=== PATIENT | female | born 1945 | race Caucasian/White ===

== ENCOUNTER → 2016-06-19 | Outpatient (CLI) | payer OTHER | LOC: RAD 10:16 | DX: Z12.31 Encounter for screening mammogram for malignant neoplasm of breast (principal) ==

== ENCOUNTER → 2017-09-04 | Outpatient (CLI) | payer OTHER | LOC: RAD 01:15 | DX: Z12.31 Encounter for screening mammogram for malignant neoplasm of breast (principal) ==

== ENCOUNTER → 2018-11-04 | Outpatient (CLI) | payer OTHER | LOC: RAD 04:05 | DX: Z12.31 Encounter for screening mammogram for malignant neoplasm of breast (principal) ==

== ENCOUNTER → 2018-11-26 | Outpatient (CLI) | payer OTHER ==
--- NOTE | 2018-11-26 10:31 | 2DMMODE ---
[facility] [place] [address] 2 D/M-MODE ECHOCARDIOGRAM Name: MERRICK DORAN Room #: REG [facility]#: [id number] ������������� Admission: 11/26/18 ������������� Attend Phys: Eber Lawrence, Discharge: ��� ������������� ��� Date of : 47 Date of Service: 11/26/18 1031 �� Report #: [id number] �������� ��������������������������������������������[id number] THIS REPORT FOR: //name// APPROVED REPORT Study performed: 11/26/2018 08:44:06 EXAM: Comprehensive 2D, Doppler, and color-flow Echocardiogram Patient Location: Out-Patient Room #: Echo lab 2 Status: routine BSA: 2.02 HR: 62 bpm BP: 138/80 mmHg Rhythm: NSR Other Information Study Quality: Good Indications Aortic Valve Disease 2D Dimensions RVDd: 31.16 mm IVSd: 12.29 (7-11mm) LVOT Diam: 19.54 (18-24mm) LVDd: 56.14 mm PWd: 10.03 (7-11mm) Ascending Ao: 27.29 (22-36mm) LVDs: 35.83 (25-40mm) Aortic Root: 27.99 mm IVC: 14.00 mm Volumes Left Atrial Volume (Systole) Single Plane 4CH: 44.95 mL Single Plane 2CH: 39.10 mL LA ESV Index: 24.00 mL/m2 Aortic Valve AoV Peak Jesse.: 2.23 m/s AO Peak Gr.: 21.00 mmHg LVOT Max P.39 mmHg AO Mean Gr.: 12.00 mmHg LVOT Max V: 0.92 m/s CRISTINA Vmax: 1.24 cm2 Mitral Valve E/A Ratio: 0.8 MV Decel. Time: 295.66 ms [facility] [place] [address] 2 D/M-MODE ECHOCARDIOGRAM Name: MERRICK DORAN Room #: REG [facility].#: [id number] ������������� Admission: 11/26/18 ������������� Attend Phys: Eber Lawrence, Discharge: ��� ������������� ��� Date of : 47 Date of Service: 11/26/18 1031 �� Report #: [id number] �������� ��������������������������������������������[id number] MV E Max Jesse.: 0.76 m/s MV A Jesse.: 0.99 m/s MV PHT: 85.74 ms IVRT: 78.43 ms Pulmonary Valve PV Peak Jesse.: 1.22 m/s PV Peak Gr.: 5.95 mmHg Pulmonary Vein P Vein S: 0.59 m/s P Vein A: 0.26 m/s P Vein D: 0.41 m/s P Vein A Dur.: 115.3 msec P Vein S/D Ratio: 1.44 Left Ventricle The left ventricle is normal size. There is normal LV segmental wall motion. There is normal left ventricular wall thickness. The left ventricular systolic function is normal. The left ventricular ejection fraction is within the normal range. LVEF is 55%. Grade I - abnormal relaxation pattern. Right Ventricle The right ventricle is normal size. The right ventricular systolic function is normal. Atria The left atrium size is normal. The right atrium size is normal. Aortic Valve The aortic valve is normal in structure. Aortic valve is calcified. Mild aortic regurgitation. Mild aortic stenosis. Peak gradient 21 mmHg. Mean gradient 12 mmHg Mitral Valve The mitral valve is normal in structure. There is no mitral valve regurgitation noted. No evidence of mitral valve stenosis. Tricuspid Valve The tricuspid valve is normal in structure. There is no tricuspid valve regurgitation noted. Pulmonic Valve The pulmonary valve is normal in structure. There is no pulmonic valvular regurgitation. Great Vessels [facility] [address] [place] [address] 2 D/M-MODE ECHOCARDIOGRAM Name: MERRICK DORAN Room #: REG CL Jacqueline#: [id number] ������������� Admission: 11/26/18 ������������� Attend Phys: Eber Lawrence, Discharge: ��� ������������� ��� Date of : 47 Date of Service: 11/26/18 1031 �� Report #: [id number] �������� ��������������������������������������������[id number] The aortic root is normal in size. IVC is normal in size and collapses >50% with inspiration. Pericardium There is no pericardial effusion. <Conclusion> The left ventricle is normal size. There is normal left ventricular wall thickness. LVEF is 55%. Grade I - abnormal relaxation pattern. The right ventricle is normal size. The left atrium size is normal. The aortic valve is normal in structure. Aortic valve is calcified. Mild aortic regurgitation. Mild aortic stenosis. Peak gradient 21 mmHg. Mean gradient 12 mmHg There is no mitral valve regurgitation noted. There is no tricuspid valve regurgitation noted. The aortic root is normal in size. There is no pericardial effusion. ��������������������������������������������� <ELECTRONICALLY SIGNED> ���������������������������������������� By: Shlomo Sewell MD, FACC ��������������������������������������������� 11/26/18 1031 1031 1031 Shlomo Sewell MD, FACC /INF
== END ==
LOC: CAT 08:00
DX: K80.20 Calculus of gallbladder without cholecystitis without obstruction (principal); I35.1 Nonrheumatic aortic (valve) insufficiency; K44.9 Diaphragmatic hernia without obstruction or gangrene; J98.4 Other disorders of lung; K76.9 Liver disease, unspecified; R91.8 Other nonspecific abnormal finding of lung field

== ENCOUNTER → 2018-12-11 | Outpatient (CLI) | payer OTHER | LOC: ULTRA 08:15 | DX: K80.20 Calculus of gallbladder without cholecystitis without obstruction (principal); N28.1 Cyst of kidney, acquired; Z88.6 Allergy status to analgesic agent ==

== ENCOUNTER 2018-12-19 15:28 | Inpatient (IN) | payer OTHER ==
[~2018-12-19] VITALS: Ht 167.6 cm; Wt 100.3 kg
[2018-12-19 15:32] VITALS: BP 98/77
[2018-12-19] MEDS ORDERED: CELEXA40 MG PO (15:59)
[2018-12-19] MEDS ORDERED: OMEPRAZOLE20 M3 PO (15:59)
[2018-12-19] MEDS ORDERED: DIOVAN160 MG PO (15:59)
[2018-12-19] MEDS ORDERED: VALACYCLOVIR HCL1 GM (16:00)
[2018-12-19] MEDS ORDERED: ASPIRIN EC325 MG PO (16:00)
[2018-12-19 16:11] LABS: ABSOLUTE NEUTROPHILS 5.2 thou/uL (1.4-8.2); BASOPHILS 0.6 % (0.0-2.0); EOSINOPHILS 2.6 % (0.0-3.0); HEMATOCRIT 38.8 % (37.0-47.0); LYMPHOCYTES 30.5 % (24.0-44.0); MCH 30.5 pg (26.0-34.0); MCHC 33.4 g/dL (28.0-37.0); MCV 91.4 fL (80.0-100.0); MONOCYTES 6.2 % (1.0-8.0); PLATELET COUNT 290 thou/uL (150-400); POLYS 60.1 % (36.0-66.0); RBC 4.25 mil/uL (4.20-5.00); RDW 13.9 % (10.5-14.5); WBC 8.7 thou/uL (4.0-11.0)
[2018-12-19 16:18] LABS: POTASSIUM 4.1 mmol/L (3.5-5.1)
[2018-12-19 16:24] LABS: ALBUMIN 3.7 g/dL (3.4-5.0); TOTAL BILIRUBIN 0.7 mg/dL (<0.1-1.0)
[2018-12-19 19:55] VITALS: BP 125/67
[2018-12-19 19:59] LABS: URINE BILIRUBIN NEGATIVE (Negative); URINE BLOOD NEGATIVE (Negative); URINE CLARITY CLEAR; URINE COLOR YELLOW; URINE GLUCOSE-RANDOM* NEGATIVE (Negative); URINE KETONES NEGATIVE (Negative); URINE LEUKOCYTES-REFLEX NEGATIVE (Negative); URINE NITRITE-REFLEX NEGATIVE (Negative); URINE PROTEIN (DIPSTICK) NEGATIVE (Negative); URINE UROBILINOGEN 0.2 E.U./dl (0.2-1.0)
[2018-12-19 21:04] VITALS: BP 103/52
--- NOTE | 2018-12-20 00:04 | NUR ---
PT ARRIVED TO THE UNIT AT AROUND 2100 HRS. PT ALERT AND ORIENTED. ATE A SANDWICH UPON ARRIVAL, DENIES NAUSEA. PT C/O R FLANK PAIN. GIVEN DIULADID FOR PAIN. AFEBRILE.PT UP WITH SBA. VOIDS PER BATHROOM BUT WITH ALSO SOME STRESS INCONTINENCE.ORIENTED UNIT AND STAFF MEMBERS. WILL CONTINUE WITH POC TILL EOS.
[2018-12-20 04:25] VITALS: BP 102/88
[2018-12-20 07:39] VITALS: BP 143/71
[2018-12-20 08:56] LABS: HEMATOCRIT 38.2 % (37.0-47.0); HEMOGLOBIN 12.7 gm/dL (12.0-15.0); MCH 30.6 pg (26.0-34.0); MCHC 33.2 g/dL (28.0-37.0); MCV 92.2 fL (80.0-100.0); RBC 4.15 mil/uL (4.20-5.00); RDW 13.9 % (10.5-14.5); WBC 8.5 thou/uL (4.0-11.0)
[2018-12-20 09:11] LABS: ALBUMIN 3.3 g/dL (3.4-5.0); CALCIUM 8.5 mg/dL (8.5-10.1); CREATININE 1.2 mg/dL (0.6-1.0); POTASSIUM 4.9 mmol/L (3.5-5.1); TOTAL BILIRUBIN 0.8 mg/dL (<0.1-1.0); TOTAL PROTEIN 6.5 g/dL (6.4-8.2)
[2018-12-20] MEDS ORDERED: FML FORTE5 ML OPHTHALMIC (11:58)
[2018-12-20] MEDS ORDERED: AVAPRO75 MG PO (11:59)
[2018-12-20] MEDS ORDERED: CRESTOR10 MG PO (12:00)
[2018-12-20 15:00] VITALS: BP 119/51
--- NOTE | 2018-12-20 18:37 | NUR ---
PT A&OX4, VSS, PAIN IN ABDOMEN AND MANAGED WITH PAIN MEDICATION. PATIENT HAS BEEN RESTING IN BED TODAY, FAMILY AT BEDSIDE. FALL PRECAUTIONS IN PLACE, FLUIDS RUNNING ORDERED. WILL CONTINUE TO MONITOR.
[2018-12-20 20:16] VITALS: BP 128/53
[2018-12-21] VITALS (8 sets, daily range): BP systolic 101–142; BP diastolic 46–102
--- NOTE | 2018-12-21 03:26 | NUR ---
PT C/O PAIN IN BACK RELATED TO GALL BLADDER ISSUES. SCHEDULED FOR SURGERY THIS AM. NPO AT MIDNIGHT. RECEIVED TORADOL IV FOR C/O PAIN. RESTING QUIETLY THROUGH THE NIGHT.
--- NOTE | 2018-12-21 13:35 | EKG ---
[place] [address] [facility] [place] [address] ELECTROCARDIOGRAM REPORT Name: MERRICK DORAN Room #: 464-P ADM IN M.R.#: [id number] ������������������ Admission: 12/19/18 ������������������ Attend Phys: Eber Lawrence MD Discharge: ������������������ Date of : 47 Report #: [id number] ����������������������������������������������������������������� [id number] THIS REPORT FOR: //name// [facility] ED Test Date: 2018-12-19 Test Time: 15:58:04 Pat Name: MERRICK DORAN Department: Room: 464 Gender: F Waste Specialist: REGINA : 1945 Requested By: Silver Rivas Order Number: [id number] MD: Janes Nelson Measurements Intervals [place] Rate: 72 P: 36 MO: 185 QRS: -18 QRSD: 90 T: 37 QT: 435 QTc: 477 Interpretive Statements Sinus rhythm Borderline prolonged QT interval Compared to ECG 09/22/2010 11:34:33 No significant change was found Electronically Signed On 12-21-2018 13:35:25 CDT by Janes Nelson [email or web address] ��������������������������������������������� <ELECTRONICALLY SIGNED> ���������������������������������������� By: Janes Nelson MD, [facility] ��������������������������������������������� 12/21/18 1335 1558 1558 Janes Nelson MD, [facility] /EPI
[2018-12-21 14:50] LABS: HEMATOCRIT 42.1 % (37.0-47.0); HEMOGLOBIN 13.5 gm/dL (12.0-15.0); MCH 30.2 pg (26.0-34.0); MCHC 32.1 g/dL (28.0-37.0); MCV 93.9 fL (80.0-100.0); RBC 4.48 mil/uL (4.20-5.00); RDW 13.8 % (10.5-14.5); WBC 25.5 thou/uL (4.0-11.0)
[2018-12-21 15:05] LABS: ALBUMIN 3.9 g/dL (3.4-5.0); CALCIUM 9.1 mg/dL (8.5-10.1); CREATININE 1.3 mg/dL (0.6-1.0); POTASSIUM 4.8 mmol/L (3.5-5.1); TOTAL BILIRUBIN 1.3 mg/dL (<0.1-1.0); TOTAL PROTEIN 7.6 g/dL (6.4-8.2)
--- NOTE | 2018-12-21 18:38 | NUR ---
Assumed pt care this am, pt was NPO from midnight and was taken for her procedure at 8 am. Pt returned from post op mid morning, VS were monitored and were stable. There were not signs of bleeling noted on the 4 lap sites. Pt complained of pain once and ws given IV medication has been sleeping, Pt was place a O2 by RT via NC since pt was O2 levels were dropping when she would fall asleep but would easily go back up once waken up, pt is easuly arousable. Post op lab we abnormal and send to Dr. Lawrence, plan is to continue IV abx. POC followed, lap sites dry and intact. No signs or verbalizations of distress have been noted.
[2018-12-22] VITALS (37 sets, daily range): BP systolic 106–150; BP diastolic 40–70
[2018-12-22 05:57] LABS: HEMATOCRIT 38.5 % (37.0-47.0); HEMOGLOBIN 12.3 gm/dL (12.0-15.0); MCH 30.2 pg (26.0-34.0); MCHC 32.1 g/dL (28.0-37.0); MCV 94.1 fL (80.0-100.0); RBC 4.09 mil/uL (4.20-5.00); RDW 14.1 % (10.5-14.5); WBC 21.8 thou/uL (4.0-11.0)
[2018-12-22 06:17] LABS: ALBUMIN 3.3 g/dL (3.4-5.0); CALCIUM 8.8 mg/dL (8.5-10.1); CREATININE 2.2 mg/dL (0.6-1.0); POTASSIUM 5.4 mmol/L (3.5-5.1); TOTAL BILIRUBIN 1.1 mg/dL (<0.1-1.0); TOTAL PROTEIN 7.4 g/dL (6.4-8.2)
--- NOTE | 2018-12-22 07:32 | NUR ---
Assumed care at 1845. Pt resting in bed. VSS. Has been drowsy all night. Informed Dr. Lawrence of change of mental status. Pt was incontinent once at night. Lap sites clean dry and intact. No identified needs at the moment. Will continue to monitor.
[2018-12-22 08:37] LABS: URINE BILIRUBIN NEGATIVE (Negative); URINE BLOOD 1+ (Negative); URINE CLARITY CLEAR; URINE COLOR YELLOW; URINE GLUCOSE-RANDOM* NEGATIVE (Negative); URINE KETONES TRACE (Negative); URINE LEUKOCYTES NEGATIVE (Negative); URINE NITRITE NEGATIVE (Negative); URINE PROTEIN (DIPSTICK) TRACE (Negative); URINE SPECIFIC GRAVITY >= 1.030 (1.005-1.035); URINE UROBILINOGEN 0.2 E.U./dl (0.2-1.0)
[2018-12-22 08:53] LABS: SQUAMOUS 0-3 Few /LPF (0-3)
[2018-12-22 08:54] LABS: BACTERIA 1-9 Few /HPF (None Seen); CRYSTALS None Seen /LPF (None Seen); HYALINE CASTS 0-3 Few /LPF (None Seen); URINE RBC None Seen /HPF (0-2); URINE WBC 0-5 Rare /HPF (0-5)
--- NOTE | 2018-12-22 09:34 | NUR ---
Assumed pt care this am , pt was very wrestless and altered mental status was noted. Along with the night nurse called Dr. Lawrence, fluids were increased and straight cat done to otain urine sample. Dr. Gonzalez came and ordered new medication ordered and CT scan. At around 9 am, pt had a projectile dark brown vomitus. Called Dr. Lawrence and called a rapid response. Orders for ICU, NG tube insertion, type and screen and 2 PRBC and 40 mg Protonix put in. Pt is now in the ICU
[2018-12-22 11:08] LABS: HEMATOCRIT 34.1 % (37.0-47.0); HEMOGLOBIN 11.2 gm/dL (12.0-15.0)
--- NOTE | 2018-12-22 17:22 | NUR ---
PATIENT ARRIVED TO ICU BED 244 AT APPROX 0945 THIS MORNING. PER REPORT, PATIENT HAD PROJECTILE VOMITED DARK RED BLOOD. PATIENT ARRIVED TO ICU, DENIES NAUSEA AT THE TIME. NO VOMITING NOTED. NG TUBE WAS PLACED TO RIGHT NARE AND 200CC DARK RED BLOOD NOTED IN [place]. PROTONIX DRIP STARTED PER ORDERS. PATIENT THEN WENT TO GI LAB FOR EGD. PATIENT WAS NOTED TO HAVE ESOPHAGITIS AND LIZZETTE-VINCENT TEAR PER PHYSICIAN. PATIENT RECOVERED IN GI LAB AND CAME BACK TO THE ICU IN STABLE CONDITION. NO N/V NOTED. NG TO LIS FOR PART OF THE SHIFT AND THEN CLAMPED AND PATIENT STARTED ON CLEAR LIQUIDS. PATIENT BECAME NAUSEATED WITH JUST ICE WATER. NG TUBE WAS THEN PLACED BACK ON LIS AND ZOFRAN GIVEN AND NOW PATIENT IS FEELING BETTER. PATIENT DOES COMPLAIN FREQUENTLY ABOUT RUQ PAIN, NO PAIN MEDICATIONS GIVEN DO TO HER BEING DROWSY. FAMILY AT BEDSIDE. PAITNET IS RESTING WITH EYES CLOSED AT THIS TIME. NO FURTHER CONCERNS, WILL CONTINUE TO MONITOR AND CARE PER PLAN OF CARE.
[2018-12-23] VITALS (24 sets, daily range): BP systolic 94–172; BP diastolic 53–86
--- NOTE | 2018-12-23 06:04 | NUR ---
ASSUMED CARE OF PT. AT 1900. PT. IS ALERT AND ORIENTED X4. COMPLAINS OF SEVERE PAIN IN BELLY DUE TO SURGERY. DILAUDID GIVEN INSTEAD OF TRAMADOL DUE TO PT. REQUEST. ZOFRAN GIVEN FOR NAUSEA. PT. HAS ADEQUATE URINARY OUTPUT. SLEPT OK THROUGH THE NIGHT. NG TO LIS. ONLY ATE ICE CHIPS THROUGH NIGHT. PLAN OF CARE IS TO CONTINUE TO MONITOR PAIN AND MONITOR FOR BLEEDING. POSSIBLE TRANSFER OUT OF ICU DEPENDING ON LABS? ASSESSMENTS AND VITAL SIGNS CHARTED. WILL CONTINUE TO MONITOR.
[2018-12-23 08:36] LABS: HEMATOCRIT 32.8 % (37.0-47.0); HEMOGLOBIN 10.8 gm/dL (12.0-15.0); MCH 30.9 pg (26.0-34.0); MCV 93.7 fL (80.0-100.0); RBC 3.5 mil/uL (4.20-5.00); RDW 14.4 % (10.5-14.5); WBC 11.2 thou/uL (4.0-11.0)
[2018-12-23 08:51] LABS: CALCIUM 8.7 mg/dL (8.5-10.1); CREATININE 1.3 mg/dL (0.6-1.0); POTASSIUM 5.1 mmol/L (3.5-5.1)
--- NOTE | 2018-12-23 10:24 | NUR ---
INITIAL ASSESSMENT: SW reviewed chart and opened case due to length of stay. Pt was admitted from home due to intractable abdominal pain. Pt had lap conner on 12/21 and is slowly progressing. Pt had EGD yesterday. Pt has NG tube in place and it may be removed later today. Pt will be started on a clear liquid diet. SW met with pt at bedside. Introduced role of SW. Pt is alert/orientated to self and place. Pt reports she lives at home with family. Pt states she is normally independent with ADLs. Pt states she has had HH in the past, but unable to recall name of provider. PT/OT ordered today to evaluate pt for discharge needs. Pt's PCP is Dr. Lawrence. Pt may transfer out of ICU. SW is following to assist as needed with discharge planning.
--- NOTE | 2018-12-23 15:22 | NUR ---
ASSUMED PT CARE AT 0645, PT ALERT TO SELF AND SITUATION, VERY LETHARGIC AND DROWSY. UNABLE TO STATE TIME OR PLACE, PT MOANS WITH EVERY BREATH. DISCUSSION WITH VIVIANE REGARDING PAIN MEDICATION DOSAGE, (DC'ING ANISA), DISCUSSION VIA TELEPHONE WITH DAUGHTER BRIGIDO, REVIEWED LABS, POD 1 ACTIVITY EXPECATIONS (UP TO CHAIR) AND PAIN MANAGEMENT. REVIEWED SAME INFO WITH ASHISH- BOTH AGREE WITH PLAN OF CARE. 1430- PT UP TO CHAIR WITH RN AND PT, PT MORE AWAKE AND LESS CONFUSED. ORAL PAIN MEDICATIONS ADMINISTERED AT 1258-STATES SHE IS HAVING NO PAIN. AND SON AT CHAIRSIDE. WILL CONTINUE TO MONITOR.
[2018-12-24] VITALS (9 sets, daily range): BP systolic 132–156; BP diastolic 61–107
--- NOTE | 2018-12-24 06:47 | NUR ---
ASSUMED PATIENT CARE AT 1900. PATIENT AAOX2 AND IS ON 3 L NC. PATIENT SITTING UP IN CHAIR AND COMPLAINS OF PAIN AND NAUSEA. HYDROCODONE AND ZOFRAN GIVEN ORDERED. PATIENT GETS IN BED AND HAS A RESTFUL NIGHT. THIS AM PATIENT GIVEN HYDROCODONE AND SHE VOMITS UP ONE PILL. THE OTHER PILL IS UNSEEN. WASTED THE PILL WITH SECOND RN. VSS AND ASSESSMENTS AND HOURLY ROUNDING COMPLETED.
[2018-12-24 08:29] LABS: HEMATOCRIT 31.8 % (37.0-47.0); HEMOGLOBIN 10.5 gm/dL (12.0-15.0); MCH 31.1 pg (26.0-34.0); MCHC 33.1 g/dL (28.0-37.0); MCV 94.1 fL (80.0-100.0); RBC 3.38 mil/uL (4.20-5.00); RDW 14.4 % (10.5-14.5); WBC 10.9 thou/uL (4.0-11.0)
[2018-12-24 08:42] LABS: CALCIUM 8.8 mg/dL (8.5-10.1); CREATININE 1.2 mg/dL (0.6-1.0); POTASSIUM 4.7 mmol/L (3.5-5.1)
--- NOTE | 2018-12-24 15:08 | PATH ---
[facility] [address] [place] [address] PATHOLOGY RPT PROCEDURE Name: MERRICK PEREZ Room #: 244-P [facility] IN M.R.#: [id number] ������������������ Admission: 12/19/18 ������������������ Date of : 47 Discharge: Report #: [id number] Path Case #: [id number] [facility] Accession Number: [id number] . 01 Material submitted: . gallbladder - GALLBLADDER . 01 Clinical history: . Acute cholecystitis, symptomatic cholelithiasis . 02 Diagnosis: Gallbladder, cholecystectomy: - Mild chronic cholecystitis. - Cholesterolosis. - Cholelithiasis. - Incidental reactive lymph node. (IUV/db; 12/23/2018) LBQ/12/23/2018 . 02 Electronically signed: . Marga Acosta MD, Pathologist NPI- [id number] . 01 Gross description: . The specimen is received in formalin, labeled "Merrick Perez, gallbladder", is a previously opened gallbladder measuring 8.0 cm in length and 3.0 cm in maximum diameter with a yellow-cisse serosa. A 1.0 x 0.6 x 0.4 cm soft lymph node is identified in the region of the gallbladder neck. The mucosa is cisse-brown with a polyp and cholesterolosis. The wall is 0.1 cm in average thickness. Within the container there is a dark brown-black, roughly oval calculus measuring 1.4 x 1.2 x 0.7 cm. Representatively submitted in A1. (SWS; 12/22/2018) SHS/SHS . 02 Pathologist provided ICD-10: K80.10, K82.4 . 02 CPT . 437084 Specimen Comment: A courtesy copy of this report has been sent to Specimen Comment: [phone], . Specimen Comment: Report sent to / DR PAN Performed at: [address] [id number] MD Espinoza Streeter MD Phone: [phone] Performed at: 02 [place] [address] PATHOLOGY RPT PROCEDURE Name: MERRICK PEREZ Room #: 244-P ADM IN M.R.#: [id number] ������������������ Admission: 12/19/18 ������������������ Date of : 47 Discharge: Report #: [id number] Path Case #: [id number] [facility] [address], [place], [place] [id number] MD Marga Acosta MD Phone: [phone]
--- NOTE | 2018-12-24 19:38 | NUR ---
ASSUMED CARE @ 0700 12/24/18, PT ASSESSMENT COMPLETE PER MED-SURG ORDERS. AXO X2-3, WEAK AND FORGETFUL. PT SR ON THE MONITOR. PT ON 3L OF , SATS IN THE HIGH 90'S. PT ABLE TO TOLERATE DIET WELL. GOP NOTED. FAMILY HER TO VISIT WITH. PLAN OF CARE- CONT TO MONITOR.
[2018-12-25 04:00] VITALS: BP 165/75
--- NOTE | 2018-12-25 06:16 | NUR ---
ASSUMED PATIENT CARE AT 1900. PATIENT IS AAOX3 AND IS HAPPY THAT VISITED HER. PATIENT STATED SHE THINKS SHE IS PASSING GAS AND HAS 3 EPISODES OF URINE INCONTINENCE. PATIENT MEDICATED FOR PAIN A COUPLE OF TIMES AND ONLY BECAME NAUSEOUS ONCE. HOURLY ROUNDING COMPLETED AND ASSESSMENT COMPLETED. PATIENT IS IMPROVING IN STATUS.
--- NOTE | 2018-12-25 11:03 | NUR ---
SEE ASSESSMENT FOR DETAILS. RELISTOR GIVEN FOR NARCOTIC INDUCED CONSTIPATION. WHEN PT WORKING WITH PHYSICAL THERAPY AND TAKING A FEW STEPS SHE WAS INCONTINENT OF URINE. NO BLEEDING OR EMESIS. PROGRESSING. REPORT CALLED TO LUIS STILL. PT TRANSFERRING PER WHEELCHAIR TO MED/SURG 405.
[2018-12-25 12:14] VITALS: BP 169/77
[2018-12-25 14:16] VITALS: BP 168/68
--- NOTE | 2018-12-25 14:57 | NUR ---
ACUTE REHAB CONSULT: EYEGLASS CUTTER SPOKE WITH DR. DOMÍNGUEZ REGARDING PATIENT AND CHART REVIEWED. PATIENT IS A GOOD CANDIDATE FOR 5N. EYEGLASS CUTTER SPOKE WITH PATIENT REGARDING ACUTE REHAB OPTION. PATIENT STATED SHE WOULD LIKE TO COME TO 5N AND DID NOT WANT ANY OTHER FACILTIY. PATIENT WAS NOT FEELING WELL. BROCHURE LEFT FOR PATIENT TO REVIEW. LIAISON OFFERED TO CALL PATIENT'S ABOUT PLAN AND PATIENT STATED THAT WAS NOT NECESSARY. WILL PLAN TO ADMIT PATIENT TOMORROW, 12-26-18, IF PATIENT IS MEDICALLY STABLE.
--- NOTE | 2018-12-25 15:01 | NUR ---
FOLLOWING FOR DC PLANNING. CLINICAL INFO REVIEWED. PT IS A FEW DAYS POST OP NELLY PALM, TRANSFERRED OUT OF ICU TODAY TO 4W. SLOW TO PROGRESS SINCE SURGERY. NOW ON FULL LIQUID DIET, REPORTS THINKS PASSING FLATUS TO RN, NO BM AND CO PAIN AND NAUSEA. RELISTOR GIVEN TODAY FOR CONSTIPATION. PT FROM HOME WITH FAMILY AND WAS INDEPENDENT. THERAPIES INDICATE NEED FOR REHAB AND POSSIBLE 5N CANDIDATE. DR. PAN IN AGREEEMENT AND DR. DOMÍNGUEZ CONSULTED. NICO FROM ACUTE REHAB SPOKE WITH PT ABOUT POSSIBILITY OF 5N STAY. PT INDICATES SHE WOULD PREFER TO STAY AT [facility] IF REHAB NEEDED. PER NICO FROM , CAN ACCEPT FOR ACUTE REHAB BUT WOULD LIKE TO RE EVAL IN AM R/T NO BM POST OP TO MAKE SURE STABLE FOR TRANSIITON OF CARE. DR. PAN AGREES. RN AND 4W SPORTS UMPIRE UPDATED.
--- NOTE | 2018-12-25 18:05 | NUR ---
PATIENT TRANSFERS FOR ICU 1130. ALERTX3 WITH FORGETFULLNESS. PAIN MANAGED WITH MEDICATIONS, INCONTINENT OF BLADDER, NO BM NOTED AT THIS TIME, PATIENT HAS PASS GASSED. DELCINED NOON AND EVENING MEAL. FLUIDS ENCOURAGED. PLANS TO DC TO [facility]NORTH TOMORROW. FALL PRECAUTIONS IN PLACE. CALLS FOR ASSISTANCE
[2018-12-25 20:34] VITALS: BP 164/88
[2018-12-26 05:38] LABS: HEMATOCRIT 32.4 % (37.0-47.0)
[2018-12-26 06:53] VITALS: BP 164/81
[2018-12-26 07:28] VITALS: BP 185/95
--- NOTE | 2018-12-26 07:33 | NUR ---
Patient BP elevated but stable, has passed it on to the day nurse; Patient woke up in the morning, stating feeling bad, pain medication and protonix given, patient fell asleep. No n/v, did not eat anything for dinner. no fever.
[2018-12-26] MEDS ORDERED: AUGMENTIN 875-1 EACH PO (07:50)
[2018-12-26] MEDS ORDERED: NORVASC5 MG PO (07:50)
[2018-12-26] MEDS ORDERED: COZAAR100 MG PO (07:51)
[2018-12-26] MEDS ORDERED: HYDROCODON-ACE1 EAC7 PO (07:51)
[2018-12-26 08:21] LABS: HEMATOCRIT 34.3 % (37.0-47.0); HEMOGLOBIN 11.5 gm/dL (12.0-15.0); MCH 30.8 pg (26.0-34.0); MCHC 33.5 g/dL (28.0-37.0); RBC 3.73 mil/uL (4.20-5.00); RDW 13.4 % (10.5-14.5); WBC 9.3 thou/uL (4.0-11.0)
[2018-12-26 08:34] LABS: CALCIUM 8.6 mg/dL (8.5-10.1); CREATININE 0.9 mg/dL (0.6-1.0); POTASSIUM 3.7 mmol/L (3.5-5.1)
[2018-12-26 10:53] VITALS: BP 162/79
--- NOTE | 2018-12-26 14:33 | NUR ---
Received awake on bed. Due medications given as prescribed, able to swallow tablets w/o difficulty. A+O 3-4, forgetful. On O2 at 2lpm via nasal cannula. Falls risk- Falls bundle in place. Incontinent B/B- chucks changed as needed. Pt with BP of 185 this AM, Dr Lawrence informed, added HTN meds- given as prescribed, BP rechecked, on 160's which pt's baseline as per report given by night staff. Pt turned regularly, assisted in ADLs. On full liquids then may advance as tolerated- pt encouraged to eat and drink; Dr Lawrence asked if pt's diet may be advanced- pt may have regular diet as per Dr Lawrence. With SL at R AC and L AC- patent. As per report given by night staff pt is up with walker- since this AM, pt not been out of bed. No episode of nausea, vomiting and abdominal pain. Dr Lawrence informed that pt hasnt opened bowels since 12/18- Enema prescribed, given and pt able to open bowels- charted. Daughter and informed and aware re: transfer to . Pt's post op site: C/D/I, with dermabond- no signs of infection. Discharge orders put in by Dr Lawrence. Discharge instructions, prescription, chart copy sent to . Report given to Moriah. Pt transfered via bed, accompanied by volunteer transport and pt's daughter. Personal belongings sent as well.
--- NOTE | 2019-01-02 14:40 | HC ---
[facility] [place] [address] CONSULTATION Name: MERRICK DORAN Room #: 450-P [facility] IN M.R.#: [id number] Admission: 12/19/18 ������������������ Attend Phys: Eber Lawrence MD Discharge: 12/26/18 ������������������ Date of : 46 Report #: [id number] THIS REPORT FOR: //name// CC: Eber Lawrence DATE OF SERVICE: 12/26/2018 HISTORY OF PRESENT ILLNESS: The patient is a 73-year-old white female who was originally admitted to [facility] 12/19/2018 with right upper quadrant and flank pain. She was diagnosed with [id number] cholecystitis and underwent a laparoscopic cholecystectomy on 12/21/2018. The next day she started having problems with nausea, emesis and had hematemesis. She was moved down to the ICU as she was vomiting blood. She was seen by Gastroenterology, was noted to have an upper GI bleed with Laura-Perea tear. She was diagnosed with sepsis, acute renal insufficiency. She had problems with acute mental status changes and appeared to have a metabolic encephalopathy with confusion and disorientation. She has gradually improved, moved out of the ICU. She has improving mental status, although does not appear back to baseline. She is passing gas, and fluids are encouraged for her. Given some Relistor for narcotic-induced constipation. We are seeing her in rehabilitation medicine consultation. PAST MEDICAL HISTORY: Includes hypertension. There is documentation of a prior CVA, history of GERD, elevated cholesterol, bilateral hip replacements, multiple falls. She has had a bladder sling for incontinence. Notes that she did wear a TENS premorbidly. History of osteoarthritis, fibromyalgia, hysterectomy. HABITS: No history of tobacco or alcohol abuse. MEDICATIONS: Please see the full medication listing. ALLERGIES: MORPHINE. SOCIAL HISTORY: Lives with her . House, 2 steps in, did not utilize gait aids. REVIEW OF SYSTEMS: Still decreased appetite at this time. Some back and abdominal discomfort. No complaints of chest pain, shortness of breath. Complains of overall generalized weakness. Did not utilize nasal prong O2 premorbidly. PHYSICAL EXAMINATION: GENERAL: A 73-year-old obese white female, in no obvious distress. VITAL SIGNS: Last recorded temperature 98.4, pulse 80, respirations 20, blood pressure 162/79. [address] [address] CONSULTATION Name: MERRICK DORAN Room #: [address] [place] [address] IN M.R.#: [id number] Admission: 12/19/18 ������������������ Attend Phys: Eber Lawrence MD Discharge: 12/26/18 ������������������ Date of : 46 Report #: [id number] GENERAL: The patient is sleepy, but easily arouses. HEENT: Facies appeared symmetric. NEUROLOGIC: There is a definite latency to her responses with some disorientation, but can follow basic commands. ABDOMEN: Obese with small incisions appearing clean. No evidence of erythema or drainage. EXTREMITIES: She has functional range of motion of both upper extremities. Strength is grade 3+ to 4-/5. Lower extremities functional range of motion, strength is grade 3+ to 4-/5. DTRs are trace to 1. She is mod assist with sit to stand. Gait was 4-5 steps min assist. ASSESSMENT: A 73-year-old white female with the following problem list: 1. Metabolic encephalopathy. 2. Sepsis. 3. Upper gastrointestinal bleed with esophagitis and Laura-Perea tear. 4. Cholecystitis status post laparoscopic cholecystectomy, 12/21/2018. 5. Acute renal insufficiency. 6. Constipation. 7. Hypertension. 8. Exogenous obesity. 9. Prior history of cerebrovascular accident. 10. History of urinary incontinence with bladder sling procedure. PLAN: The patient is a candidate for an acute in-hospital inpatient rehabilitation stay. Can plan on transfer to the acute inpatient rehab loza when medically ready and a bed available. ��������������������������������������������� <ELECTRONICALLY SIGNED> ���������������������������������������� By: Malcolm Lugo MD ��������������������������������������������� 01/02/19 1440 [id number] Malcolm Lugo MD /nt
== END 2018-12-26 14:05 | disposition short-term general hospital (02) | DRG 853 ==
LOC: ER 15:28 → EROBS 18:19 → 4W 18:19 → ICU 18:19 → 4W 21:02 → ICU 12-22 09:38 → 4W 12-25 11:57 → ENTRNSPT 12-26 13:55 → EDTRNSPTSTS 12-26 13:58 → 4W 12-26 14:05
PROVIDERS: Internal Medicine Gastroenterology; Physician Assistant; Surgery; ADMIT Family Medicine
PROC: 0FT44ZZ Resection of Gallbladder, Percutaneous Endoscopic Approach (ICD-10-PCS; principal; 2018-12-21)
PROC: 0D9670Z Drainage of Stomach with Drainage Device, Via Natural or Artificial Opening (ICD-10-PCS; 2018-12-22)
PROC: 0DJ08ZZ Inspection of Upper Intestinal Tract, Via Natural or Artificial Opening Endoscopic (ICD-10-PCS; 2018-12-22)
DX: A41.9 Sepsis, unspecified organism (principal); K22.6 Gastro-esophageal laceration-hemorrhage syndrome; G93.41 Metabolic encephalopathy; N17.9 Acute kidney failure, unspecified; K80.00 Calculus of gallbladder with acute cholecystitis without obstruction; I10 Essential (primary) hypertension; K21.9 Gastro-esophageal reflux disease without esophagitis; H40.9 Unspecified glaucoma; E78.00 Pure hypercholesterolemia, unspecified; Z96.643 Presence of artificial hip joint, bilateral; M19.90 Unspecified osteoarthritis, unspecified site; K59.00 Constipation, unspecified; E66.09 Other obesity due to excess calories; K20.9 Esophagitis, unspecified; K66.0 Peritoneal adhesions (postprocedural) (postinfection); E87.5 Hyperkalemia; K44.9 Diaphragmatic hernia without obstruction or gangrene; D50.0 Iron deficiency anemia secondary to blood loss (chronic); Z86.73 Personal history of transient ischemic attack (TIA), and cerebral infarction without residual deficits; Z88.6 Allergy status to analgesic agent; Z90.710 Acquired absence of both cervix and uterus; Z68.35 Body mass index [BMI] 35.0-35.9, adult
CPT/HCPCS: 10040; 10045; 10047; 10078; 50101; 50249; 50411; 50555; 50558; 50900; 50962; 51975; 52265; 52266; 52287; 53307; 53310; 54022; 54118; 55245; 55317; 56462; 56525; 56526; 62110; 62900; 70005

== ENCOUNTER 2018-12-26 10:22 | Inpatient (IN) | payer OTHER ==
[~2018-12-26] VITALS: Ht 167.6 cm; Wt 100.4 kg
--- NOTE | ~2018-12-26 | H ---
[facility] [place] [address] HISTORY AND PHYSICAL Name: MERRICK DORAN Room #: 513-P ADM IN M.R.#: [id number] Admission: 12/26/18 ������������������ Attend Phys: Malcolm Lugo MD Discharge: ������������������ Date of : 47 Report #: [id number] THIS REPORT FOR: //name// CC: Malcolm Lawrence DATE OF SERVICE: 12/26/2018 HISTORY AND PHYSICAL AND POST-ADMISSION PHYSICIAN EVALUATION HISTORY OF PRESENT ILLNESS: The patient is a 73-year-old white female originally admitted to [facility] on 12/19/2018 with right upper quadrant flank pain. She was diagnosed with an acute on chronic cholecystitis and underwent a laparoscopic cholecystectomy on 12/21/2018. The next day, she was started having problems with nausea, emesis and hematemesis. She was moved out of the ICU. She was vomiting blood. She was seen by Gastroenterology and noted to have an upper GI bleed with Laura-Perea tear. She was diagnosed with sepsis, acute renal insufficiency. She had problems with acute mental status changes and appeared to have a metabolic encephalopathy with confusion and disorientation. She was gradually improved, moved out of the ICU. She has had improving mental status, although has still confusion and some disorientation. She is passing gas, has been advanced to a regular diet, still has some nausea. She was given Relistor for narcotic-induced constipation. She has been admitted for acute in-hospital inpatient rehabilitation. PAST MEDICAL HISTORY: Includes hypertension. There is documentation of a prior CVA, history of GERD, elevated cholesterol, bilateral hip replacements, multiple falls. She has had a bladder sling for incontinence. She did wear Attends premorbidly. History of osteoarthritis, fibromyalgia, hysterectomy. HABITS: No history of tobacco or alcohol abuse. MEDICATIONS: Please see the full medication listing. This includes vitamins, herbals, and supplements per report. ALLERGIES: MORPHINE. SOCIAL HISTORY: Lives with her , house, 2 steps in, did not utilize gait aids. REVIEW OF SYSTEMS: Decreased appetite with some nausea, but appears to be improving. No complaints of chest pain, shortness of breath. She does have a premorbid history of urinary incontinence. Has some complaints of frustration with her prolonged recovery. PHYSICAL EXAMINATION: [facility] [address] [place] [address] HISTORY AND PHYSICAL Name: MERRICK DORAN Room #: 513-P [facility] IN M.R.#: [id number] Admission: 12/26/18 ������������������ Attend Phys: Malcolm Lugo MD Discharge: ������������������ Date of : 46 Report #: [id number] GENERAL: The patient is a 73-year-old white female, in no obvious distress. VITAL SIGNS: Last recorded temperature is 98.1, pulse 72, respirations 16, blood pressure 154/74. NEUROLOGIC: The patient is alert. Facies are symmetric. She was seen earlier. HEENT: Appeared benign. CHEST: Sounded clear to auscultation. CARDIOVASCULAR: Regular rate and rhythm. ABDOMEN: She has small incisions from the laparoscopic surgery. Bowel sounds are present. GENITOURINARY AND RECTAL: Deferred. EXTREMITIES: Functional range of motion of both upper extremities. Strength is a grade 4-/5. DTRs are trace to 1. Lower extremities, no focal calf swelling. There is no edema, functional range of motion, strength is grade 4-/5. Functionally, she has been mod assist with basic sit to stand and is taking just a few steps with min assist. Cognitively, she has the ability to follow basic commands, but there is a definite latency to her responses and she had some confusion noted by nursing overnight. ASSESSMENT: A 73-year-old white female with the following problem list: 1. Metabolic encephalopathy. 2. Sepsis. 3. Upper gastrointestinal bleed with esophagitis and Laura-Perea tear. 4. Cholecystitis, status post laparoscopic cholecystectomy, 12/21/2018. 5. Acute renal insufficiency. 6. Constipation. 7. Hypertension. 8. Exogenous obesity. 9. Prior history of cerebrovascular accident. 10. History of urinary incontinence with bladder sling procedure. PLAN: The patient is admitted for acute in-hospital inpatient rehabilitation. From a postadmission physician evaluation perspective, there are no relevant changes since the preadmission screening. Please see the previous and current functional status. As far as risk of complications, the patient has multiple medical comorbidities as noted above. Initial plan of care involves the interdisciplinary acute inpatient rehabilitation program with goal of maximizing her functional independence, so she can hopefully return back to her prior living situation. Measurable functional goals would be for her to become modified independent with transfers, mobility and ADLs, so she can hopefully return back to her prior living situation. Prognosis is reasonably good with estimated length of stay probably at least 10 days to 2 weeks. Potential barriers would include her multiple medical comorbidities and decreased functional status. The patient meets diagnostic criteria for an acute in-hospital inpatient rehabilitation stay. She meets medical necessity criteria. She does have the [facility] [address] [place] [address] HISTORY AND PHYSICAL Name: MERRICK DORAN Room #: 513-P ADM IN M.R.#: [id number] Admission: 12/26/18 ������������������ Attend Phys: Malcolm Lugo MD Discharge: ������������������ Date of : 46 Report #: [id number] tolerance for therapies and has appropriate discharge goals back to the home setting. ��������������������������������������������� ���������������������������������������� By: ��������������������������������������������� 0915 [id number] Malcolm Lugo MD /PMT
--- NOTE | ~2018-12-26 | PLAN ---
[facility] [place] [address] REHAB UNIT PLAN OF CARE Name: MERRICK DORAN Room #: 513-P ADM IN M.R.#: [id number] Admission: 12/26/18 ������������������ Attend Phys: Malcolm Lugo MD Discharge: ������������������ Date of : 46 Report #: [id number] THIS REPORT FOR: //name// CC: Malcolm Hendersonal Lawrence DATE OF SERVICE: 12/29/2018 SUBJECTIVE: The patient is seen back today in followup. She is in no distress. She notes that she has had some problems with mid back pain and she indicates she has had this even before her hospitalization, although she is a bit vague in her history regarding this. She notes she has had at beforehand, but also notes she had a lot of other pains as well with her abdomen, etc. Denies any radicular component. Pain is right over her mid spinal area. On examination, there is no rash that is noted. No spasm. She does have some focal discomfort over her mid thoracic left-sided paraspinals. Nontender over the spinous processes. No focal tenderness over her ribs. From a functional perspective, she is progressed as far as sit to stand transfers, min assist. Gait is now min assist 60 feet with a front-wheeled walker. Occupational therapy, lower body dressing is max assist. Upper body dressing is min assist. ASSESSMENT: 1. Metabolic encephalopathy. Appears to be improving in this regard. She does have mild cognitive deficits and has moderate memory deficits. 2. Sepsis. 3. Upper gastrointestinal bleed with esophagitis and Laura-Perae tear. 4. Cholecystitis, status post laparoscopic cholecystectomy on 12/21/2018. 5. Acute renal insufficiency. 6. Constipation. 7. Hypertension. 8. Exogenous obesity. 9. Prior history of cerebrovascular accident. 10. Prior history of urinary incontinence of bladder with bladder sling procedure. 11. She does have left upper mid back discomfort. PLAN: The overall plan of care is based on the preadmission screen, post-admission physician evaluation and information garnered from therapy assessments. 1. Estimated length of stay is probably at least 10 days to 2 weeks. 2. Medical prognosis is reasonably good. 3. Anticipated interventions includes the interdisciplinary acute inpatient rehabilitation program. [address] [address] REHAB UNIT PLAN OF CARE Name: MERRICK DORAN Room #: 513-P ADM IN .R.#: [id number] Admission: 12/26/18 ������������������ Attend Phys: Malcolm Lugo MD Discharge: ������������������ Date of : 46 Report #: [id number] 4. Anticipated functional outcomes would be for the patient to become modified independent with transfers, mobility and ADLs. 5. Discharge destination would be back to the home setting where she lives with her . 6. Expected therapy by discipline includes PT and OT and speech 1 hour per day each five days a week throughout the duration of the acute inpatient rehabilitation stay. ADDENDUM: She does not want any oral medications for her mid back discomfort. We will try a Lidoderm patch. She has been improving nicely with her therapies with transfers, min assist and is ambulated up to 60 feet min assist with a front-wheeled walker. ��������������������������������������������� ���������������������������������������� By: ��������������������������������������������� 0934 [id number] Malcolm Lugo MD /PMT
[~2018-12-26 10:22] MED LIST: ASPIRIN EC325 MG PO; AUGMENTIN 875-1 EACH PO; AVAPRO75 MG PO; CELEXA40 MG PO; COZAAR100 MG PO; CRESTOR10 MG PO; DIOVAN160 MG PO; FML FORTE5 ML OPHTHALMIC; HYDROCODON-ACE1 EAC7 PO; NORVASC5 MG PO; OMEPRAZOLE20 M3 PO; VALACYCLOVIR HCL1 GM
[2018-12-26 14:20] VITALS: BP 163/72
--- NOTE | 2018-12-26 19:27 | NUR ---
ASSUMED CARE OF PT AT 1415 WHEN PT ARRIVED ON UNIT. VERBAL REPORT RECEIVED BY PREVIOUS NURSE AT APPROXIMATELY 1330. ADMISSION ASSESSMENT, HISTORY, CONSENTS, EDUCAITON, AND ORIENTATION COMPLETED. PT IS INCONTINENT OF B/B. NO IV OR OTHER DRAINS AT THIS TIME. REPORTS POOR VISION AND CURRENTLY DOES NOT HAVE GLASSES AT HOSPITAL. TOELRATED PO MEDICAITONS SCHEDULED WHOLE WITIH THIN LIQUIDS. PATIENT REPORTS PAIN 5/10 IN HER STOMACH AND WAS GIVEN ORDERED PRN PAIN MEDICATIONS WHICH PARTIALLY MANAGED PAIN. CURRENTLY ON 2L O2 VIA NC WITH O2 SAT OF 95%. TOLERATED REGULAR DIET WITH THIN LIQUIDS. PT IS A&OX4, FALL PRECAUTIONS IN PLACE AND NURSING WILL CONTINUE TO MONITOR.
[2018-12-26 19:40] VITALS: BP 153/67
--- NOTE | 2018-12-26 20:53 | NUR ---
DURING ADMISSION ASSESSMENT PT REPORTED FEELING LIKE LIFE WAS NOT WORTH LIVING, BUT DOES STATE THAT SHE HAS NO DESIRE, PLAN, OR MEANS TO HARM HERSELF. CASE MANAGEMENT CONSULT ORDERED. NURSING WILL CONTINUE TO MONITOR PATIENT FOR SAFETY.
--- NOTE | 2018-12-27 04:45 | NUR ---
ASSUMED CARE AT 1900, ASSESSMENT COMPLETED. PT C/O PAIN IN RIGHT ABD, BOTH UPPER AND LOWER QUADS, THAT SOMETIMES RADIATES INTO BACK. RIGHT SIDE OF ABD IS FIRM AND TENDER TO TOUCH. DENIES NAUSEA OR SOB. FOUR ABD LAPS SITES HEALING, DERMABOND IN PLACE. PT COMPLAINED THAT SHE IS URINATING FREQUENTLY AND NEEDING TO BE CHANGED; ATTEMPTED TO USE A FEMALE EXTERNAL CATHETER, BUT THE PT KEPT MOVING IT, MISTAKING IT FOR HER CALL LIGHT AND NOT WANTING TO URINATE ON IT. ATTEMPTED TO REPLACE MULTIPLE TIMES, BUT PT MILDLY CONFUSED OVERNIGHT AND WOULD NOT LEAVE IN PLACE. NO OTHER CONCERNS, WILL CONTINUE TO MONITOR.
[2018-12-27 06:49] LABS: HEMATOCRIT 30.4 % (37.0-47.0); HEMOGLOBIN 10.5 gm/dL (12.0-15.0); MCH 30.9 pg (26.0-34.0); MCHC 34.5 g/dL (28.0-37.0); MCV 89.5 fL (80.0-100.0); RBC 3.39 mil/uL (4.20-5.00); RDW 13.4 % (10.5-14.5); WBC 7.5 thou/uL (4.0-11.0)
[2018-12-27 06:58] LABS: CALCIUM 8.1 mg/dL (8.5-10.1); CREATININE 0.8 mg/dL (0.6-1.0); POTASSIUM 3.1 mmol/L (3.5-5.1)
[2018-12-27 08:06] VITALS: BP 154/74
--- NOTE | 2018-12-27 13:36 | NUR ---
TOWARDS POC PT A/O X4, VSS, AFEBRILE, DENIES PAIN. PT/OT WORK WITH PT. NO NV. NO SOA. NO CONCERNS VOICED. WILL CONTINUE TO MONITOR.
[2018-12-27 19:40] VITALS: BP 162/66
--- NOTE | 2018-12-28 02:49 | NUR ---
APPRECIATED HYDROCODONE FOR DULL ABDOMMINAL ACHE. INSISTS ON WEARING BRIEF FOR USI WITH OCCASSIONAL COUGHING. O2 NEEDED TO KEEP SAT 92% AND ABOVE.
[2018-12-28 08:32] VITALS: BP 168/68
--- NOTE | 2018-12-28 10:46 | NUR ---
ASSUMED CARE OF PT AT 0715. PT IS A&OX4, BLOOD PRESSURE ELEVATED, BUT WAS TREATED WITH PO MEDICATIONS ORDERED. PT TOLERATES MEDICATIONS WHOLE OR CUT IN HALF WITH THIN LIQUIDS. PT REPORTED PAIN IN ABDOMEN AND WAS TREATED WITH PO PAIN MEDICAITONS PER ORDERS. SURGICAL TROCAR SITES X4 TO ABDOMEN (POST-CHOLECYSTECTOMY) OPEN TO AIR AND WNL. PATIENT IS ON 2L O2 VIA NC AND IS MAINTINIING SPO2 SATS >90%, PT IS NOT ON HOME O2 AND HAS BEEN TAUGHT AND ASSISTED WITH IS EVERY 1-2 HOURS WHILE AWAKE. EDEMA IN LOWER EXTREMITIES BILATERALLY, PATIENT EDUCATED ABOUT ELEVATING LEGS WHEN IN BED. FALL PRECAUTIONS IN PLACE AND NURSING WILL CONTINUE TO MONITOR.
[2018-12-28 17:16] LABS: URINE BILIRUBIN NEGATIVE (Negative); URINE BLOOD NEGATIVE (Negative); URINE CLARITY CLEAR; URINE COLOR YELLOW; URINE GLUCOSE-RANDOM* NEGATIVE (Negative); URINE KETONES NEGATIVE (Negative); URINE LEUKOCYTES-REFLEX NEGATIVE (Negative); URINE NITRITE-REFLEX NEGATIVE (Negative); URINE PROTEIN (DIPSTICK) NEGATIVE (Negative); URINE SPECIFIC GRAVITY <= 1.005 (1.005-1.035)
[2018-12-28 19:45] VITALS: BP 140/65
--- NOTE | 2018-12-29 04:32 | NUR ---
PATIENT HAS BEEM INCONTINENT TWICE TONIGHT, ONCE REQUIRING A BED CHANGE. PAIN MED NOW FOR VAGUE LEFT SHOULDER ACHE SO THAT SHE CAN GET BACK TO SLEEP.
[2018-12-29 09:15] VITALS: BP 154/70
--- NOTE | 2018-12-29 12:20 | NUR ---
Nutrition: pt seen due to consult related to recent surgery/diet modifications. Pt S/P lap choly on 12/21 and currently on regular diet. Also recent upper GIB, Laura Perea tear, esophagitis. Is eating approx. 50% of meals. Able to order meals. Current c/o bloating and no BM x 3 days. Stool regimen started. Pt reports bowels arent usually regular. No weight loss rather feels she has gained wt over admit. Class [address] obesity [address] suggested low fat diet modifcations post choly. Will add to diet order. Otherwise consider low risk.
--- NOTE | 2018-12-29 12:50 | NUR ---
chart review, pt up sitting in wc, with son alberto and daughter in law. pt up in wheel chair, finishing lunch. intro to cm, dcp, and team meeting. pt reported Live with mau, 2 steps to enter from garage. independent prior to hospital. driving, manage own medication and keep in bottles they come in. go out to eat. 2 steps into house from garage. have cleaning q 2 weeks. have cane, wheel chair, crutches, 4ww with seat and breaks. had hh and then outpt after hip surgery. will cont following as needed for dc needs.
--- NOTE | 2018-12-29 16:09 | NUR ---
ASSUMED CARE OF PT AT 0715. PT IS A&OLX4 AND VITAL SIGNS ARE STABLE. PT REPORTS PAIN IN LEFT SCAPULAR AREA WHICH WAS MANAGED WITH MASSAGE, REPOSITIONING, REST, AND PAIN PATCH. PT PARTICIPATED IN SCHEDULED THERAPIES. TOLERATED MEDICATIONS WHOLE WITH THIN LIQUIDS. TRANSFERED WITH 1 PERSON MID-MOD ASSIST WITH GAIT BELT AND WALKER. FALL PRECAUTIONS IN PLACE AND NURSING WILL CONTINUE TO MONITOR.
[2018-12-29 19:40] VITALS: BP 152/61
--- NOTE | 2018-12-30 00:19 | NUR ---
PT TRANSFERRING FROM CHAIR TO BED WITH ASSIST X1 AND IS TOLERATING FAIR. LORTAB PROVIDING PAIN RELIEF. INCONTINENT. RESTING COMFORTABLY. NO NEEDS VOICED. CALL LIGHT WITHIN REACH. WILL CONTINUE TO PROVIDE FREQUENT OBSERVATION.
[2018-12-30 08:25] VITALS: BP 149/60
--- NOTE | 2018-12-30 13:50 | NUR ---
team meeting, recommendation : 26 ( pt, ot, st, nursing) and transition to 4ww
--- NOTE | 2018-12-30 18:26 | NUR ---
ASSUMED CARE OF PATIENT AT APPROX 0715. PATIENT A/O X4, FORGETFUL AT TIMES. NEEDS ASSIST WITH CUES FOR SAFETY. C/O PAIN IN BETWEEN SHOULDER BLADES AND MID-BACK. VOLTAREN GEL APPLIED, COLD COMPRESS APPLIED LATER THIS AFTERNOON, PATIENT REPORTED RELIEF FROM BOTH, REQUESTED LIDOCAINE PATCH BE SWITCHED TO NIGHT TIME TO HELP WITH SLEEP. PROVIDER CONTACTED, ORDERS RECEIVED. PATIENT PARTICIPATED WITH THERAPY THIS DATE, EDUCATED AGAIN ON REST PERIODS BETWEEN THERAPY. LEGS ELEVATED AT REST. FALL PRECAUTIONS IN PLACE. WILL CONTINUE TO MONITOR.
[2018-12-30 19:30] VITALS: BP 147/57
--- NOTE | 2018-12-31 04:32 | NUR ---
UP TO BSC TWICE FOR VOID AND ONCE FOR BM. APPRECIATES LIDODERM PATCH OVERNIGHT AND IS ABLE TO INSTILL HER OWN EYEDROPS. PLEASANT
[2018-12-31 08:30] VITALS: BP 145/56
--- NOTE | 2018-12-31 18:45 | NUR ---
ASSUMED CARE AT APPROX 0715. PATIENT A/O X4. FORGETFUL AT TIMES. VSS. C/O PAIN IN UPPER BACK, GREATER ON LEFT SIDE THAN RIGHT. VOLTAREN GEL APPLIED, PATIENT REFUSED PO PAIN MEDS. HEATING PAD ORDERED PER DR. DOMÍNGUEZ, PATIENT EDUCATED ON TIMING OF VOLTAREN IN RESPECT TO HEATING PAD TO PROTECT SKIN. PATIENT UP X1 ASSIST. STAYED CONTINENT, BRIEFS DRY. PATIENT TOLIETED PER BSC AT TIMES DUE TO URGENCY REFUSED AMBULATING TO TOILET. BM X2 THIS DATE, VERY LOOSE, GI CONSULTED, LACTOBACILLUS ORDERED, STARTED TODAY. PATIENT PARTICIPATED IN THERAPY. SCHEDULED REST BREAKS. CALLS APPROPRIATELY. ROUNDED ON HOURLY. FALL PRECAUTIONS IN PLACE. RESTING IN BED AT END OF SHIFT.
[2018-12-31 19:30] VITALS: BP 116/48
--- NOTE | 2019-01-01 03:12 | NUR ---
assumed care at approx 1900 evening 12/31. pt alert and oriented x4, appropriate and cooperative. pt up to bsc to void before falling asleep. pt took hs meds with water tolerating well. pt appears to be sleeping soundly with hourly rounding checks. bed alarm on and call light in reach. will continue to monitor.
[2019-01-01 19:46] VITALS: BP 117/52
--- NOTE | 2019-01-01 20:35 | NUR ---
ASSUMED CARE OF PT AT 0715.PT IS A&OX4 AND VITAL SIGNS ARE STABLE. PT REPORTED PAIN IN BACK WHICH WAS TREATED WITH TOPICAL PAIN MEDICAITONS, PT PARTICIPATED IN SCHEDULED THERAPIES. PT TOLERATED PO MEDICAITIONS WHOLE WITH THIN LIQUIDS, TRANSFERS WITH 1 PERSON SBA AND AMBULATES IN DORAN WITH 1 PERSON MIN ASSISTANCE WITH GAIT BELT AND WALKER. PT AND NURSING DISCUSSED PT BEING MOD I IN ROOM AT NIGHT FOR TRANSFERS TO BEDSIDE COMMODE ONLY. NURSING AND PT AGREE THAT PATIENT IS APPROPRIATE FOR THIS CIRCUMSTANCE, DR. DOMÍNGUEZ NOTIFIED AND GAVE VERBAL ORDERS FOR MOD I, AND NURSING/PT EDUCATED PT ABOUT SAFETY WITH OUT OF BED AT NIGHT. FALL PRECAUTIONS IN PLACE AND NURSING WILL CONTINUE TO MONITOR.
--- NOTE | 2019-01-02 00:21 | NUR ---
PT ASSESSMENT COMPLETED AND VSS. MEDS GIVEN ORDERED AND WELL TOLERATED. UP TO BSC ON HER OWN - STEADY. VOIDING WELL. PRN PAIN MEDICATION WORKING WELL FOR BACK PAIN. SLEEPING. WILL CONTINUE TO MONITOR FREQUENTLY.
[2019-01-02 08:10] VITALS: BP 142/70
[2019-01-02 10:02] LABS: URINE BILIRUBIN NEGATIVE (Negative); URINE BLOOD NEGATIVE (Negative); URINE CLARITY CLEAR; URINE COLOR YELLOW; URINE GLUCOSE-RANDOM* NEGATIVE (Negative); URINE KETONES NEGATIVE (Negative); URINE LEUKOCYTES-REFLEX TRACE (Negative); URINE NITRITE-REFLEX NEGATIVE (Negative); URINE PROTEIN (DIPSTICK) NEGATIVE (Negative); URINE SPECIFIC GRAVITY <= 1.005 (1.005-1.035); URINE UROBILINOGEN 0.2 E.U./dl (0.2-1.0)
--- NOTE | 2019-01-02 13:48 | NUR ---
ASSUMED CARES AT 0700. PT AWAKE, ALERT AND ORIENTED*4. C/O RIGHT UPPER BACK PAIN, PAIN MEDICATION ADMINISTERED ORDERED, HEATING PAD WHEN IN CHAIR OR BED. VITALS REMAIN STABLE. ABDOMEN SOFT AND ROUND, BS HYPERACTIVE, PT REPORTED MULTIPLE LOOSE STOOLS YESTERDAY, LAXATIVES AND STOOL SOFTENERS REMAIN ON HOLD. LAP HAYDE SITES REMAIN INTACT, NO DRAINAGE. PT UP WITH SBA, GAITBELT AND TOLERATED WELL. Q1H VISUAL CHECKS. CALL LIGHT WITHIN REACH. FALL PRECAUTIONS IN PLACE
[2019-01-02 19:00] VITALS: BP 127/53
--- NOTE | 2019-01-03 02:35 | NUR ---
assumed care at approx 1900 evening 01/02. pt sitting up in recliner at change of shift alert and oriented x4 appropriate and cooperative. pt modified indep in room at hs with bsc at bedside. pt took hs meds with water tolerating well. pt appears to be sleeping soundly with hourly rounding checks. call light in reach. will continue to monitor.
[2019-01-03 07:27] VITALS: BP 118/52
--- NOTE | 2019-01-03 10:12 | NUR ---
ASSUMED CARE AT 0700. PATIENT IS ALERT AND ORIENTED X4. PATIENT KILLIAN'S, BOOKKEEPER RECEPTIONIST ARE EQUAL. LUNGS ARE CLEAR. ABD IS SOFT WITH BSX4. ABD SITES ARE GLUED AND INTACT. PATIENT HAS BSX4. UP TO THE BSC TO VOID MAX COLORED URINE. FALL AND SAFETY PROTOCOLS IN PLACE. NO C/O PAIN AT TIME. CONTINUES TO PROGESS TOWARDS D/C GOALS. WILL CONTINUE TO MONITER.
[2019-01-03 20:26] VITALS: BP 143/67
[2019-01-03 23:50] VITALS: BP 143/67
--- NOTE | 2019-01-04 03:29 | NUR ---
assumed care at approx 1900 evening 01/03. pt alert and oriented x4, appropriate and cooperative. pt modified indep up to bsc tolerating well. pt took hs meds with water tolerating well and pt appears to be sleeping soundly with hourly rounding checks. call light in reach. will continue to monitor.
[2019-01-04 10:31] LABS: CALCIUM 9.1 mg/dL (8.5-10.1); CREATININE 1.1 mg/dL (0.6-1.0); POTASSIUM 3.8 mmol/L (3.5-5.1)
[2019-01-04 12:33] VITALS: BP 133/54
--- NOTE | 2019-01-04 14:48 | HC ---
[facility] [place] [address] CONSULTATION Name: MERRICK DORAN Room #: 501-[address] [facility] [place] .R.#: [id number] Admission: 12/26/18 ������������������ Attend Phys: Malcolm Lugo MD Discharge: ������������������ Date of : 47 Report #: [id number] THIS REPORT FOR: //name// CC: Malcolm Lawrence DATE OF SERVICE: 12/27/2018 ATTENDING PHYSICIAN: Malcolm Lugo M.D. BOX BRANDER: Eber Friedman, PhD. CLINICAL PRESENTATION: The patient is a 73-year-old white female initially admitted to the [facility] with right upper quadrant flank pain. The patient was diagnosed with [id number] cholecystitis and underwent a laparoscopic cholecystectomy on 12/21/2018. She developed problems with nausea, emesis and hematemesis and was admitted to the ICU. Gastroenterology diagnosed an upper GI bleed with a Laura-Perea tear. She was subsequently diagnosed with sepsis, acute renal insufficiency, and mental status changes associated with metabolic encephalopathy. The patient's condition gradually improved and she was discharged to the rehabilitation program; however, intermittent confusion and disorientation has persisted. Her diagnosis on admission to the rehabilitation unit was a metabolic encephalopathy, sepsis, upper gastrointestinal bleed with esophagitis and Laura-Perea tear, cholecystitis, status post laparoscopic cholecystectomy on 12/21/2018, acute renal insufficiency, constipation, hypertension, exogenous obesity, history of CVA and a history of urinary incontinence with bladder sling procedure. A complete description of her medical condition and history can be found in her medical record. Neuropsychological consultation was requested to provide assistance in the assessment of cognitive and emotional status and to provide recommendations and services. Prior to this most recent admission, she was living independently in her home with her . 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 His feeding tube has been in place for 15 years. She has two children that live within the [place] area. She reports having utilized medication to assist with anxiety. TECHNIQUES UTILIZED: Clinical interview, review of medical records, staff consultation and behavioral observation, mini mental status exam 2 standard version, brief verbal fluency assessment and clock drawing. EXAMINATION FINDINGS: The patient was alert and cooperative with the [facility] [address] [place] [address] CONSULTATION Name: MERRICK DORAN Room #: 501-[address] [facility] [place] M.R.#: [id number] Admission: 12/26/18 ������������������ Attend Phys: Malcolm Lugo MD Discharge: ������������������ Date of : 47 Report #: [id number] assessment. She accurately described events surrounding her admission. She does not present with an aphasia. Her thoughts are logical and goal oriented. There is no evidence of thought disorder. She does not report suicidal ideation. However, she describes having severe nightmares and is afraid to go to sleep. Energy level is fatigued and tired. Difficulty with memory and word finding is also reported. The patient was somewhat irritable during the interview. She reports having much stress as a result of her hospitalization. Her performance on the MMSE 2 brief version was in the mild range of impairment with a raw score of 13 and a T-score of 34. She was 3/3 for initial registration, 5/5 for orientation to time and place. She was 0/3 for immediate recall of 3 items after a brief time delay and distraction. Her performance deteriorated on the MMSE 2 standard version to a raw score 22 of 30, which is a T score of 26 and percentile rank of 1. She was 1/5 for serial sevens, 2/2 for naming, 1/1 for repetition, 3/3 for comprehension. She could read and follow single command and write a sentence. However, she was not able to accurately copy a simple geometric design. Clock drawing was within normal limits. However, visual spatial constuction appears impaired. Letter fluency was extremely low with a raw score of 5 and a T score of 24, which is less than the 1st percentile. Low average functioning is suggested for category fluency with a T score of 42 and percentile rank of 21. The patient is presenting with anxiety and depression along with intermittent irritability. Deficits in immediate recall, attention/concentration and verbal fluency suggests impairment in memory and executive dysfunction. DIAGNOSTIC IMPRESSION: Neurocognitive disorder, unspecified - with intermittent irritability - extent to be determined, likely in the [id number]-jk-[id number] range. Adjustment disorder with anxiety and depressed mood. RECOMMENDATIONS: Continued treatment program for depression and anxiety. She reports severe difficulty with sleep, which may benefit from an antidepressant like Remeron. Outpatient psychological counseling is also indicated to assist in her overall adjustment. The patient will likely require assistance in the management of medication, finances and nutrition upon discharge. Additional evaluation as an outpatient for sleep disorder may also be of benefit. Verbal praise and complements about participation in therapies along with encouragement to recognize as strengths and achievement of the therapeutic goals. She is pessimistic about her recovery and worried about her ability to return to prior level of independence. Assistance in recognizing her strengths [facility] [address] [place] [address] CONSULTATION Name: MERRICK DORAN Room #: 501-A [facility] M.R.#: [id number] Admission: 12/26/18 ������������������ Attend Phys: Malcolm Lugo MD Discharge: ������������������ Date of : 47 Report #: [id number] and the manner in which achieving goals in therapy will lead to independence upon her return home. She may need additional support services following discharge. Thank you very much for allowing me to provide the consultation on this patient. ��������������������������������������������� <ELECTRONICALLY SIGNED> ���������������������������������������� By: Eber Friedman, PhD ��������������������������������������������� 01/04/19 [id number] Eber Friedman, PhD /nt
[2019-01-04 19:30] VITALS: BP 148/69
--- NOTE | 2019-01-04 20:16 | NUR ---
ASSUMED CARE AT APPROX 0715. PATIENT A/O X4. DENIES PAIN. UP X1 ASSIST. VSS. PATIENT REPORTS SHE IS FRUSTRATED WITH ALARMS, WANTS TO BE MOD I DURING DAY WELL. SPOKE TO PATIENT, WILL DISCUSS WITH DR. DOMÍNGUEZ DURING HIS AM ROUNDS. PATIENT AMBULATING WELL, CONTINUED TO CALL FOR ASSISTANCE DURING DAY. FALL PRECAUTIONS IN PLACE. FAMILY AT BEDSIDE. RESTING IN BED AT CHANGE OF SHIFT.
--- NOTE | 2019-01-04 22:35 | NUR ---
PT ASSESSMENT COMPLETED AND VSS. MEDS GIVEN ORDERED AND WELL TOLERATED. FALL PRECAUTIONS IN PLACE. UP TO BSC STEADY. CHIKA TO BSC AT HS. PRN PAIN AND MUSCLE RELAXER HELPFUL FOR BACK PAIN. HEATING PAD TO BACK. PT REQUESTING TO BE MADE CHIKA IN ROOM AT ALL TIMES AND FEELS THAT SHE IS READY. WILL CHECK WITH DR IN AM. SLEEPNG WELL. WILL CONTINUE TO MONITOR FREQUENTLY.
[2019-01-05 07:30] VITALS: BP 117/60
--- NOTE | 2019-01-05 10:00 | NUR ---
cm notified by team, and physician rt pt going to dc home tomorrow and is no longer require hh needs, will need outpt therapy. script for outpt hh written per
--- NOTE | 2019-01-05 13:07 | NUR ---
Seen for follow up. Continues on low fat/heart healthy diet s/p lap conner 12/21. Met with pt/family member at lunch. Appetite remains stable, pt voices eating at her baseline. Averaging close to 60% of meals (12/31 - now). Recent BM 01/03; continues on scheduled bowel regimen to support this w/ docusate BID, daily miralax (also has prn milk of mag). Educated further on low fat food choices moving forward, while still optimizing protein intake. Recommended minimum of 1 protein source/meal. Remains low nutrition risk. Likely d/c 01/06 per pt.
--- NOTE | 2019-01-05 14:34 | NUR ---
FAXED SCRIPT FOR OUTPT PT TO [facility] OUTPT THERAPY DEPT SPOKE WITH MAL AND SHE RECEIVED SCRIPT AND REFERRAL AND WILL NOTIFY PT TO SET UP THERAPY TIME.
[2019-01-05 19:11] VITALS: BP 120/46
--- NOTE | 2019-01-05 20:14 | NUR ---
ASSUMED CARE AT APPROX 0715. PATIENT A/O X4. VSS. MOD I IN ROOM WITHOUT GAIT AIDS PER DR. DOMÍNGUEZ. PATIENT APPROVED BY THERAPISTS AND DR. DOMÍNGUEZ TO CHANGE DISCHARGE DATE TO TOMORROW. DR. PAN NOTIFIED, STATED HE WOULD DO MED ORDERS IN AM. PATIENT NOTIFIED. PHARMACY UP TO DATE. PATIENT DENIES PAIN, CONTINUES TO REFUSE VOLTAREN. PARTICIPATED IN THERAPY. WALKWAY CLEAR OF OBSTACLES. RESTING IN RECLINER AT CHANGE OF SHIFT.
--- NOTE | 2019-01-06 03:48 | NUR ---
PT ASSESSMENT COMPLETED AND VSS. MEDS GIVEN ORDERED AND WELL TOLERATED. PT MOD I. PT STEADY AND SAFE AT THIS TIME. VOIDING WELL. PRN PAIN MEDICATION WORKING WELL FOR BACK PAIN. SLEEPING. WILL CONTINUE TO MONITOR FREQUENTLY.
[2019-01-06] MEDS ORDERED: LIDOPATCH1 EACH TRANSDERM (07:41)
[2019-01-06 08:15] VITALS: BP 126/51
--- NOTE | 2019-01-06 09:44 | NUR ---
ASSUMED CARE AT 0700. PATIENT IS ALERT AND ORIENTED X4. PATIENT KILLIAN'S, PSYCHOMETRIC EXAMINER ARE EQUAL. LUNGS ARE CLEAR. ABD IS SOFT WITH BSX4. PATIENT IS MOD/I IN ROOM WITHOUT DEVICES. UP ON SIDE OF BED FOR BREAKFAST. FALL AND SAFETY PROTOCOLS IN PLACE. DENIES ANY PAIN AT THIS TIME. CONTINUES TO PROGRESS TOWARDS D/C GOALS. PLAN D/C TO HOME LATER TODAY. WILL CONTINUE TO MONITER.
[2019-01-06 11:50] VITALS: BP 126/51
--- NOTE | 2019-01-06 12:55 | NUR ---
team meeting, pt to dc today, outpt [facility]. pt is mod I in room.
--- NOTE | 2019-01-06 13:10 | NUR ---
PATIENT D/C'D TO HOME. PATIENT LEFT VIA W/C IN GOOD CONDITION. PATIENT VERBALLIZED UNDERSTANDING OF D/C INSTRUCTIONS AND MEDS. PATIENT LEFT WITH SCRIPTS AND D/C INSTRUCTIONS IN GOOD CONDITION.
== END 2019-01-06 13:08 | disposition home health service (06) | DRG 70 ==
LOC: ENTRNSPT 01-06 12:59 → EDTRNSPTSTS 01-06 13:01
PROVIDERS: Family Medicine; ADMIT Physical Medicine & Rehabilitation
DX: G93.41 Metabolic encephalopathy (principal); A41.9 Sepsis, unspecified organism; K22.6 Gastro-esophageal laceration-hemorrhage syndrome; N17.9 Acute kidney failure, unspecified; K20.9 Esophagitis, unspecified; K59.00 Constipation, unspecified; I10 Essential (primary) hypertension; E66.09 Other obesity due to excess calories; K81.1 Chronic cholecystitis; R53.81 Other malaise; D64.9 Anemia, unspecified; E87.5 Hyperkalemia; N28.9 Disorder of kidney and ureter, unspecified; E78.5 Hyperlipidemia, unspecified; F43.23 Adjustment disorder with mixed anxiety and depressed mood; Z96.643 Presence of artificial hip joint, bilateral; E87.6 Hypokalemia; Z68.35 Body mass index [BMI] 35.0-35.9, adult; Z86.73 Personal history of transient ischemic attack (TIA), and cerebral infarction without residual deficits; Z91.81 History of falling; Z90.710 Acquired absence of both cervix and uterus; Z88.6 Allergy status to analgesic agent
CPT/HCPCS: 10112

== ENCOUNTER → 2019-03-23 | Outpatient (CLI) | payer OTHER ==
[~2019-03-23] MED LIST changes: +LIDOPATCH1 EACH TRANSDERM
== END ==
LOC: CAT 09:17
DX: K76.89 Other specified diseases of liver (principal); N28.1 Cyst of kidney, acquired

== ENCOUNTER 2019-08-27 10:56 | Emergency (ER) | payer OTHER ==
[~2019-08-27] VITALS: Ht 167.6 cm; Wt 90.7 kg
[2019-08-27] MEDS ORDERED: DIOVAN160 MG PO (11:12)
[2019-08-27] MEDS ORDERED: VALACYCLOVIR1000 MG PO (11:13)
[2019-08-27] MEDS ORDERED: TAMIFLU75 MG PO (12:51)
[2019-08-27] MEDS ORDERED: IBUPROFEN 600600 M1 PO (12:53)
[2019-08-27 13:02] VITALS: BP 146/56
== END 2019-08-27 13:08 | disposition home or self-care (01) ==
LOC: ER 10:56
DX: J11.1 Influenza due to unidentified influenza virus with other respiratory manifestations (principal); M19.90 Unspecified osteoarthritis, unspecified site; M79.7 Fibromyalgia; I10 Essential (primary) hypertension; K21.9 Gastro-esophageal reflux disease without esophagitis; E78.00 Pure hypercholesterolemia, unspecified; Z88.5 Allergy status to narcotic agent; Z79.82 Long term (current) use of aspirin; Z79.899 Other long term (current) drug therapy; Z86.73 Personal history of transient ischemic attack (TIA), and cerebral infarction without residual deficits; Z96.643 Presence of artificial hip joint, bilateral; Z98.890 Other specified postprocedural states; Z90.710 Acquired absence of both cervix and uterus